=== PATIENT | male | born 1950 | race Caucasian/White ===

== ENCOUNTER → 2018-05-14 | Outpatient (CLI) | payer MEDICARE ==
[2018-05-14 10:09] LABS: HGB 16.3 gm/dL (13.0-17.5); MCH 28.6 pg (25.0-35.0); MCHC 32.7 g/dL (31.0-37.0); MCV 87.6 fL (80.0-100.0); Mean Platelet Volume 7.1; Platelet Count 200 k/uL (150-450); RBC 5.71 m/uL (4.30-5.90); RDW 13.2 % (11.5-15.5); WBC 6.6 k/uL (3.8-10.6)
[2018-05-14 10:18] LABS: INR 0.9 (<1.2); Partial Thromboplastin Time 25.2 sec (22.0-30.0); Prothrombin Time 9.6 sec (9.0-12.0)
== END | disposition home or self-care (01) ==
LOC: LABPAT 09:32
PROVIDERS: ATTEND Orthopaedic Surgery
DX: Z01.812 Encounter for preprocedural laboratory examination (principal)
CPT/HCPCS: 36415; 80051; 82565; 84520; 85027; 85610; 85730; 87070

== ENCOUNTER 2018-05-28 05:33 | Inpatient (IN) | payer MEDICARE ==
[~2018-05-28 05:33] MED LIST: ACETAMINOPHEN TAB 500 MG TAB PO ONE; MELOXICAM 7.5 MG TAB PO ONE; TRANEXAMIC ACID 1,000 MG in SODIUM CHLORIDE 0.9% 100 ML IVPB PRN; TRANEXAMIC ACID 1,000 MG in SODIUM CHLORIDE 0.9% 50 ML IVPB ONE
[2018-05-28] MEDS ORDERED: ceFAZolin 3 GM in SODIUM CHLORIDE 0.9% 100 ML IVPB ONE (06:00)
[2018-05-28] MEDS ORDERED: ROPIVACAINE 246.25 MG, EPINEPHrine 0.5 MG, KETOROLAC 30 MG, cloNIDine HCL/PF 80 MCG, WA... MISCELLANE ONE ×5 (06:10)
[2018-05-28] MEDS ORDERED: fentaNYL (PF) 50 MCG/ML 2 ML AMP IV PRN (06:12)
[2018-05-28] MEDS ORDERED: ONDANSETRON 4 MG/2 ML VIAL IVP ONE (06:12)
[2018-05-28] MEDS ORDERED: DEXAMETHASONE SOD PHOSPHATE 10 MG/ML 1 ML VIAL IV ONE (06:12)
[2018-05-28] MEDS ORDERED: LIDOCAINE 1% 20 ML VIAL (10MG/ML) FOR IV START INTRADERMA PRN (06:12)
[2018-05-28] MEDS ORDERED: MIDAZOLAM (PF) 2 MG/2 ML VIAL IV PRN (06:12)
[2018-05-28] MEDS: LACTATED RINGERS 1,000 ML IV SCH (06:26)
[2018-05-28 06:36] LABS: Glucose,Whole Blood 198 mg/dL (75-99)
[2018-05-28] MEDS ORDERED: hydrOXYzine PAMOATE 25 MG CAP PO PRN (06:56)
[2018-05-28] MEDS ORDERED: ONDANSETRON 4 MG/2 ML VIAL IVP PRN (06:56)
[2018-05-28] MEDS ORDERED: MAGNESIUM HYDROXIDE 2,400 MG/10 ML CUP PO PRN (06:56)
[2018-05-28] MEDS ORDERED: HYDROmorphone 0.5 MG/0.5 ML SYRINGE IVP PRN ×2 (06:56)
[2018-05-28] MEDS ORDERED: HYDROcodone/APAP 5-325MG 1 EACH TAB PO PRN (06:56)
[2018-05-28] MEDS ORDERED: NALOXONE 0.4 MG/ML 1 ML VIAL IV PRN (06:56)
[2018-05-28] MEDS ORDERED: DIAZEPAM 5 MG TAB PO PRN (06:56)
[2018-05-28] MEDS ORDERED: TRANEXAMIC ACID 1,000 MG/10 ML VIAL ONE (07:00)
[2018-05-28] MEDS ORDERED: ePHEDrine SULFATE/0.9% NACL/PF 50 MG/5 ML SYRINGE IV ONE (07:00)
[2018-05-28] MEDS ORDERED: PHENYLEPHRINE-0.9% NACL SYG 1 MG/10 ML SYRINGE ONE (07:00)
[2018-05-28] MEDS ORDERED: SODIUM CHLORIDE 0.9% IRRIG 1,000 ML BTL IRRIGATION ONE (07:00)
[2018-05-28] MEDS ORDERED: SODIUM CHLORIDE 0.9% 100 ML BAG ONE (07:00)
[2018-05-28] MEDS ORDERED: HEPARIN SODIUM,PORCINE 10,000 UNIT/ML 1 ML VIAL ONE (07:00)
[2018-05-28] MEDS ORDERED: fentaNYL (PF) 50 MCG/ML 2 ML AMP ONE (07:00)
[2018-05-28] MEDS ORDERED: MIDAZOLAM 2 MG/2 ML VIAL ONE (07:00)
[2018-05-28] MEDS ORDERED: ceFAZolin 3,000 MG in SODIUM CHLORIDE 0.9% IRRIGATIO 3,000 ML IRRIGATION ONE (07:04)
[2018-05-28] MEDS ORDERED: LACTATED RINGERS 1,000 ML IV ONE (08:06)
[2018-05-28] MEDS ORDERED: MELOXICAM 7.5 MG TAB PO SCH (09:00)
[2018-05-28] MEDS ORDERED: ASPIRIN 325 MG TAB PO SCH (09:00)
--- NOTE | 2018-05-28 09:03 | P.OP ---
Date of Procedure: 05/28/18 Preoperative Diagnosis: Severe osteoarthritis right hip Postoperative Diagnosis: Severe osteoarthritis right hip Procedure(s) Performed: Right total hip arthroplasty with a direct anterior approach Implants: López and nephew Polarstem size 9 standard López [employer] Nephew R3, 3 hole acetabular shell, 60 mm López [employer] Nephew reflection 6.5 mm cancellus screw, 25 mm 2 López [employer] Nephew R3, XLPE 20 acetabular liner López & Nephew Oxinium femoral head 36 m, +8 All components were press-fit. The articulation is Oxinium on polyethylene. Anesthesia: spinal Surgeon: Zia Bae Dopster #1: Roya Ortega Estimated Blood Loss (ml): 600 (300 mL returned with Cell Saver) Pathology: other (Femoral head) Condition: stable Disposition: PACU Indications for Procedure: After failure of conservative treatment we discussed the surgical and nonsurgical treatment options at length. Patient wishes to proceed with a total hip arthroplasty with a direct anterior approach. Complications specific to this procedure were discussed at length, including but not limited to infection, leg length discrepancy, dislocation, and nerve injury. Patient is aware of all these complications and informed consent was obtained Operative Findings: The operative findings are consistent with severe osteoarthritis of the right hip Description of Procedure: Patient was seen and evaluated in the preoperative area, consent was reviewed, and the surgical site was marked with a skin marker. Patient was then brought to the operating room and given prophylactic antibiotics intravenously. 1 g of Tranexamic acid was also given. A spinal anesthetic was administered by the anesthesia department. The patient was then placed on the Roebuck table with the bony prominences well-padded. The hip area was then prepped and draped in usual sterile fashion. A universal timeout was then performed, which confirmed the patient's name, surgical site, ALLERGIES, and procedure being performed. Next the incision site was located at 1 cm distal and 1 cm lateral to the anterior superior iliac spine. The skin and subcutaneous tissues were sharply incised. Incision was carefully dissected down to the fascia overlying the tensor fascia autumn muscle. This fascia was then incised in line with the incision. Next, using blunt finger dissection, the tensor fascia autumn muscle was dissected off its investing fascia. The muscle was then carefully retracted laterally with a cobra retractor over the lateral neck of the femur. Next, the circumflex vessels were identified and cauterized using the AquaMantis device. The anterior hip capsule was then exposed. The capsule was then opened and an inverted T fashion. Cobra retractors were then placed intracapsularly. The proximal femur was then visualized. The femoral neck was then osteotomized appropriate level above the lesser trochanter. Small amount of traction was placed with the Roebuck table. A small wedge of bone was then removed from the remaining femoral head. Next, using a corkscrew femoral head was easily removed from the acetabulum. On gross visual inspection, the femoral head had complete loss of articular cartilage in multiple periarticular osteophytes. Attention was then turned to the acetabulum. the acetabulum was exposed and any remaining labrum was excised. Sequential reaming of the acetabulum was performed using fluoroscopic guidance. When the appropriate size was reached, a trial was then placed. The position and fit of the trial was checked with fluoroscopy. The trial was then removed. Then, using fluoroscopic guidance, the final implant was impacted at 20 of anteversion and 40 of abduction, and fully seated in the acetabulum. 2 screws were then placed in the acetabulum. Again fluoroscopy was used to check position of the screws. Next, the liner was then impacted, with a 20 elevated liner located in the anterior superior quadrant. Component locking was confirmed. Attention was then directed to the femur. With the aid of the Roebuck table, the femur was externally rotated to approximately 130, extended, and abducted under the opposite leg. A side hook was then placed under the proximal femur, and the side hook elevator was used to elevate the proximal femur. Retractors were then placed. A capsular release was performed, as well as a release of the conjoined tendon, which afforded excellent visualization of the proximal femur. Next, a box osteotome was used to lateralize the proximal femur. A grain handler was then used to locate the femoral canal. Sequential broaching was then performed with appropriate size which afforded excellent fixation in the proximal femur. A trial was then placed with appropriate head and neck, and the hip was gently reduced with the aid of the Roebuck table. Fluoroscopy was then used to check position of the components, as well as to ensure equal leg lengths. The hip was then gently dislocated and the trials were then removed. Final implants were then impacted and the hip was again reduced. Final fluoroscopic x-rays confirmed that the components were in anatomic position, as well as equal leg lengths. The hip was also taken through range of motion, and found to be stable. The hip was then copiously irrigated with antibiotic solution with pulsatile lavage. The hip was then irrigated with Irrisept solution. The soft tissues were then injected with a ropivacaine solution, which consisted of 246.25 mg of ropivacaine, 0.5 mg of epinephrine, 30 mg of Toradol, 80 g of clonidine, and 48.45 mL of sterile water, for a total of 100 mL of fluid injected. A second dose of 1 g of Tranexamic acid was also given. the fascia was then closed with 2-0 strata fix suture. The subcutaneous tissue was closed with 3-0 Vicryl. The subcuticular tissue was closed with 3-0 strata fix suture. The skin was then closed with Dermabond glue and a sterile silver dressing. The patient was then transferred to the recovery room in stable condition. The stores assistant MAKAYLA Abel was required due to the complexity of surgery, and the need for skilled surgical garment assembler for positioning, draping, exposure, retraction, and closure of the wound.
--- NOTE | 2018-05-28 09:36 | XR ---
EXAMINATION TYPE: XR Hip Limited RT DATE OF EXAM: 05/28/2018 COMPARISON: NONE HISTORY: 67-year-old male status post hip surgery, assess cervical alignment TECHNIQUE: Single AP portable view FINDINGS: Slightly underpenetrated exam. Alignment grossly anatomic demonstration of right hip total arthroplas ty. Both the acetabular cup and femoral stem components of the prosthesis appear well seated. No liz prosthetic fracture seen. Some minimal soft tissue air related to recent operation. IMPRESSION: Uncomplicated postoperative appearance right total hip arthroplasty.
[2018-05-28 10:48] VITALS: BMI 35.2
[2018-05-28] MEDS: HYDROmorphone 0.5 MG/0.5 ML SYRINGE IVP PRN ×2 (10:53→15:28)
[2018-05-28] MEDS: SODIUM CHLORIDE 0.9% 1,000 ML IV SCH ×2 (10:59→22:44)
--- NOTE | 2018-05-28 11:19 | XR ---
Limited right hip HISTORY: Status post right hip arthroplasty 2 intraoperative C-arm images document the procedure.
--- NOTE | 2018-05-28 11:20 | FL ---
Fluoroscopy HISTORY: Hip replacement 30 seconds fluoroscopy time supplied to the referring clinician. 2 intraoperative C-arm images docum ent the procedure. See dictated report from orthopedic surgery.
[2018-05-28 11:57] LABS: Glucose,Whole Blood 275 mg/dL (75-99)
[2018-05-28] MEDS: INSULIN ASPART (NovoLOG) 100 UNIT/ML VIAL SQ SCH ×4 (13:23→20:20)
[2018-05-28] MEDS: HYDROcodone/APAP 5-325MG 1 EACH TAB PO PRN ×2 (13:23→20:21)
--- NOTE | 2018-05-28 15:02 | P.CONS ---
History of Present Illness - Reason for Consult Consult date: 05/28/18 postoperative management of hypertension and diabetes Requesting physician: Zia Bae - Chief Complaint elective right DUARTE - History of Present Illness 67-year-old male with history of hypertension diabetes and CAD status post stents Patient presented electively for right total hip arthroplasty due to advanced degenerative joint disease failing outpatient therapy with medical conservative management. Patient reported a lot of pain on daily basis refractory to pain medications. Patient is a . Patient is currently seen postoperative day 0 tolerated procedure well denies any nausea vomiting chest pain trouble breathing or any active bleeding. Patient pain level at this time is well- tolerated. He tolerated by mouth intake did not pass urine or bowel movement yet. I reviewed his medications with the patient. We'll continue his home medications we'll reassess labs and blood work in the morning Review of Systems Pertinent positives as noted in HPI. All other systems were reviewed and are negative Past Medical History Past Medical History: Coronary Artery Disease (CAD), Diabetes Mellitus, GERD/ Reflux, Hyperlipidemia, Hypertension, Osteoarthritis (OA) Additional Past Medical History / Comment(s): hx ulcers, History of Any Multi-Drug Resistant Organisms: None Reported Past Surgical History: Back Surgery, Heart Catheterization With Stent, Orthopedic Surgery, Tonsillectomy Additional Past Surgical History / Comment(s): HEART STENTS X 4, surgery on ellyn hands, Past Anesthesia/Blood Transfusion Reactions: No Reported Reaction Additional Past Anesthesia/Blood Transfusion Reaction / Comm: . Date of Last Stent Placement:: approx 10 yrs ago Past Psychological History: No Psychological Hx Reported Smoking Status: Former smoker Past Alcohol Use History: Rare Additional Past Alcohol Use History / Comment(s): QUIT SMOKING 2005, SMOKED 3PPD FOR 45YRS Past Drug Use History: None Reported - Past Family History Mother Family Medical History: CVA/TIA Father Family Medical History: Myocardial Infarction (NM) Brother(s) Family Medical History: Cancer Medications and Allergies Home Medications Medication Instructions Recorded Confirmed Type Aspirin 325 mg PO DAILY 03/27/14 05/28/18 History DULoxetine HCL 60 mg PO QAM 03/27/14 05/28/18 History Insulin Detemir [Levemir] 60 unit SQ BID 03/27/14 05/28/18 History Metoprolol Tartrate [Lopressor] 25 mg PO BID 03/27/14 05/28/18 History Tamsulosin [Flomax] 0.4 mg PO BID 03/27/14 05/28/18 History Clopidogrel [Plavix] 75 mg PO DAILY #90 tab 03/31/14 05/28/18 Rx Omeprazole 20 mg PO BID 11/02/15 05/28/18 History Cholecalciferol [Vitamin D3] 2,000 unit PO DAILY 05/21/18 05/28/18 History Fluticasone/Vilanterol [Breo 1 inhalation PO RT-DAILY 05/21/18 05/28/18 History Ellipta 100-25 Mcg Inhaler] Ibuprofen 800 mg PO TID PRN 05/21/18 05/28/18 History Insulin Aspart [NovoLOG Flexpen] 30 units SQ TID 05/21/18 05/28/18 History Ipratropium/Albuterol Sulfate 1 puff INHALATION RT-BID 05/21/18 05/28/18 History [Combivent Respimat Inhaler] Liraglutide [Victoza 3-Rikki] 0.6 mg SQ DAILY 05/21/18 05/28/18 History Mupirocin 2% Oint [Bactroban 2% 1 applic TOPICAL TID PRN 05/21/18 05/28/18 History Oint] Pravastatin Sodium [Pravachol] 80 mg PO HS 05/21/18 05/28/18 History Allergies Allergy/AdvReac Type Severity Reaction Status Date / Time No Known Allergies Allergy Verified 05/28/18 09:37 Physical Exam Vitals: Vital Signs Temp Pulse Pulse Resp BP Pulse Ox 05/28/18 09:46 85 16 145/93 97 05/28/18 09:30 80 16 135/61 97 05/28/18 09:15 83 16 144/67 99 05/28/18 09:05 97.7 F 86 16 153/97 99 05/28/18 06:31 97.1 F L 82 16 163/38 96 Intake and Output 05/27/18 05/28/18 05/28/18 22:59 06:59 14:59 Intake Total 200 1401 Output Total 600 Balance 200 801 Intake: IV 200 1401 Output: Estimated Blood Loss 600 Constitutional: No acute distress, conversant, pleasant Eyes: Anicteric sclerae, moist conjunctiva, no lid-lag Pupils equal round reactive to light ENMT: NC/AT Oropharynx clear, no erythema, or exudates Neck: Supple, FROM, no masses, or JVD No carotid bruits No thyromegaly Lungs: Clear to auscultation Clear to percussion Normal respiratory effort, no accessory muscle use Cardiovascular: Heart regular in rate and rhythm, No murmurs, gallops, or rubs No peripheral edema Abdominal: Soft Nontender, no guarding, rebound or rigidity Abdomen moving with respiration Normoactive bowel sounds No hepatomegaly, No splenomegaly No palpable mass No abdominal wall hernia noted Skin: Normal temperature, tone, texture, turgor No induration No subcutaneous nodules No rash, lesions No ulcers Extremities: Surgical dressing over the right anterior hip, clean dry and intact, no bruising or ecchymosis visible No digital cyanosis No clubbing Pedal pulses intact and symmetrical Radial pulses intact and symmetrical No calf tenderness Psychiatric: Alert and oriented to person, place and time Appropriate affect fair judgment Neuro Muscles Strength 5/5 in all 4 extremities except for limited exam over the right hip due to recent surgery Sensation to light touch grossly present throughout Cranial nerves II-XII grossly intact No focal sensory deficits Lymphatics: no palpable cervical or supraclavicular , or inguinal lymph nodes Results Labs: Abnormal Lab Results - Last 24 Hours (Table) 05/28/18 05/28/18 Range/Units 06:34 11:41 POC Glucose (mg/dL) 198 H 275 H (75-99) mg/dL Assessment and Plan Assessment: 67-year-old male with history of diabetes and hypertension. Admitted electively for right hip total arthroplasty patient is seen postoperative day 1 for medical management of his diabetes and hypertension. Currently doing well tolerated procedure well no active complaints or immediate postoperative complications Plan: Degenerative disease of the right hip, status post total hip arthroplasty postoperative day 0 Pain and DVT prophylaxis per orthopedic Chronic conditions currently stable Diabetes mellitus continue with insulin GERD continue with PPI COPD currently compensated History of CAD status post stents Hypertension currently controlled Hyperlipidemia CK D Follow-up morning labs medications reviewed Patient is full code Thank you for allowing us to participate in the care of this patient. Do not hesitate to contact us with questions. Someone can be reached from the [facility] hospitalist group at all hours of the day at [phone].
[2018-05-28] MEDS: METOPROLOL TARTRATE 25 MG TAB PO SCH ×2 (15:30→20:20)
[2018-05-28] MEDS ORDERED: IPRATROPIUM-ALBUTEROL 3 ML NEB INHALATION PRN (15:44)
[2018-05-28] MEDS: ceFAZolin 3 GM in SODIUM CHLORIDE 0.9% 100 ML IVPB SCH (16:33)
[2018-05-28 17:21] LABS: Glucose,Whole Blood 307 mg/dL (75-99)
[2018-05-28] MEDS: SYMBICORT 80-4.5 MCG INHALER INHALATION SCH (20:09)
[2018-05-28] MEDS: IPRATROPIUM-ALBUTEROL 3 ML NEB INHALATION SCH (20:09)
[2018-05-28 20:16] LABS: Glucose,Whole Blood 253 mg/dL (75-99)
[2018-05-28] MEDS: TAMSULOSIN 0.4 MG CAP.ER.24H PO SCH (20:20)
[2018-05-28] MEDS: INSULIN DETEMIR (LEVEMIR) 100 UNIT/ML SYR SQ SCH (20:20)
[2018-05-28] MEDS ORDERED: PRAVASTATIN SODIUM 80 MG TAB PO SCH (21:00)
[2018-05-28] MEDS ORDERED: SENNOSIDES-DOCUSATE SODIUM 1 EACH TAB PO SCH (21:00)
[2018-05-29] MEDS: ceFAZolin 3 GM in SODIUM CHLORIDE 0.9% 100 ML IVPB SCH (00:20)
[2018-05-29] MEDS: HYDROmorphone 0.5 MG/0.5 ML SYRINGE IVP PRN (00:26)
[2018-05-29] MEDS: HYDROcodone/APAP 5-325MG 1 EACH TAB PO PRN ×2 (03:14→08:54)
[2018-05-29] MEDS: LACTATED RINGERS 1,000 ML IV SCH (06:04)
[2018-05-29 06:57] LABS: Anion Gap 5 mmol/L; Blood Urea Nitrogen 23 mg/dL (9-20); Calcium 8.7 mg/dL (8.4-10.2); Carbon Dioxide 28 mmol/L (22-30); Chloride 103 mmol/L (98-107); Glucose 134 mg/dL (74-99); Potassium 4.2 mmol/L (3.5-5.1); Sodium 136 mmol/L (137-145)
[2018-05-29 07:08] LABS: Glucose,Whole Blood 128 mg/dL (75-99)
[2018-05-29 07:15] LABS: Basophils % (A) 0 %; Eosinophils # (A) 0.1 k/uL (0-0.7); Eosinophils % (A) 1 %; HCT 35.4 % (39.0-53.0); Lymphocytes # (A) 1.6 k/uL (1.0-4.8); Lymphocytes % (A) 15 %; MCH 28.7 pg (25.0-35.0); MCHC 32.6 g/dL (31.0-37.0); Mean Platelet Volume 7.4; Monocytes # (A) 0.6 k/uL (0-1.0); Monocytes % (A) 6 %; Neutrophils # (A) 7.7 k/uL (1.3-7.7); Neutrophils % (A) 77 %; Platelet Count 197 k/uL (150-450); RBC 4.02 m/uL (4.30-5.90); RDW 13.6 % (11.5-15.5); WBC 10.1 k/uL (3.8-10.6)
[2018-05-29 07:16] LABS: HGB 11.5 gm/dL (13.0-17.5)
[2018-05-29] MEDS ORDERED: PANTOPRAZOLE 40 MG TABLET PO SCH (07:30)
[2018-05-29 07:36] VITALS: BP 156/80; RESP 18; TEMP 98
[2018-05-29] MEDS: INSULIN ASPART (NovoLOG) 100 UNIT/ML VIAL SQ SCH ×2 (07:50→07:56)
[2018-05-29] MEDS: SYMBICORT 80-4.5 MCG INHALER INHALATION SCH (08:30)
[2018-05-29] MEDS: IPRATROPIUM-ALBUTEROL 3 ML NEB INHALATION SCH (08:30)
[2018-05-29 08:43] VITALS: PULSE 110
--- NOTE | 2018-05-29 08:53 | P.DS ---
Providers Date of admission: 05/28/18 05:33 Expected date of discharge: 05/29/18 Attending physician: Zia Bae Consults: 05/28/18 06:56 Consult Physician Routine Consulting Provider: Beau Burris Consult Reason/Comments: medical management and anticoagulation Do you want consulting provider notified?: Yes 05/28/18 09:46 Consult Physician Routine Consulting Provider: Teresa Joyce Consult Reason/Comments: medical management and anticoagulation Do you want consulting provider notified?: Already Contacted Primary care physician: Beau Burris - Discharge Diagnosis(es) (1) Primary osteoarthritis of right hip Current Visit: Yes Status: Acute (2) S/P total hip arthroplasty Current Visit: Yes Status: Acute Hospital Course: This is a 67-year-old male with known history of degenerative arthritis of the right hip. The patient presents for evaluation. After discussion and consideration patient elects to proceed with total hip arthroplasty. The patient is seen preoperatively by Dr. Bae and medically cleared for surgery by their primary care physician. Patient is admitted to [facility] on 05/28/2018 for total hip arthroplasty. The procedures performed without complication or sequelae. The patient is doing well postoperatively. Labs and vital signs are stable on day of discharge. On day of discharge patient's hip incision is healing well. There is minimal erythema. There is no drainage noted at this time. There is minimal soft tissue swelling to the hip and thigh. Patient has full foot and ankle motion without difficulty or pain. Neurovascular status to the right lower extremity is intact. Patient is discharged home in good condition. Please see med rec for accurate list of home medications. Plan - Discharge Summary Discharge Rx Participant: No New Discharge Prescriptions: New Aspirin 325 mg PO BID #60 tab HYDROcodone/APAP 5-325MG [Ona 5-325] 1 - 2 tab PO Q6HR PRN #56 tab PRN Reason: Pain Sennosides [Senokot] 1 tab PO BID #60 tablet No Action Tamsulosin [Flomax] 0.4 mg PO BID Insulin Detemir [Levemir] 60 unit SQ BID DULoxetine HCL 60 mg PO QAM Metoprolol Tartrate [Lopressor] 25 mg PO BID Aspirin 325 mg PO DAILY Clopidogrel [Plavix] 75 mg PO DAILY #90 tab Omeprazole 20 mg PO BID Fluticasone/Vilanterol [Breo Ellipta 100-25 Mcg Inhaler] 1 inhalation PO RT- DAILY Ibuprofen 800 mg PO TID PRN PRN Reason: pain Insulin Aspart [NovoLOG Flexpen] 30 units SQ TID Ipratropium/Albuterol Sulfate [Combivent Respimat Inhaler] 1 puff INHALATION RT-BID Liraglutide [Victoza 3-Rikki] 0.6 mg SQ DAILY Mupirocin 2% Oint [Bactroban 2% Oint] 1 applic TOPICAL TID PRN PRN Reason: hand irritation Pravastatin Sodium [Pravachol] 80 mg PO HS Cholecalciferol [Vitamin D3] 2,000 unit PO DAILY Discharge Medication List Aspirin 325 mg PO DAILY 03/27/14 [History] DULoxetine HCL 60 mg PO QAM 03/27/14 [History] Insulin Detemir [Levemir] 60 unit SQ BID 03/27/14 [History] Metoprolol Tartrate [Lopressor] 25 mg PO BID 03/27/14 [History] Tamsulosin [Flomax] 0.4 mg PO BID 03/27/14 [History] Clopidogrel [Plavix] 75 mg PO DAILY #90 tab 03/31/14 [Rx] Omeprazole 20 mg PO BID 11/02/15 [History] Cholecalciferol [Vitamin D3] 2,000 unit PO DAILY 05/21/18 [History] Fluticasone/Vilanterol [Breo Ellipta 100-25 Mcg Inhaler] 1 inhalation PO RT- DAILY 05/21/18 [History] Ibuprofen 800 mg PO TID PRN 05/21/18 [History] Insulin Aspart [NovoLOG Flexpen] 30 units SQ TID 05/21/18 [History] Ipratropium/Albuterol Sulfate [Combivent Respimat Inhaler] 1 puff INHALATION RT- BID 05/21/18 [History] Liraglutide [Victoza 3-Rikki] 0.6 mg SQ DAILY 05/21/18 [History] Mupirocin 2% Oint [Bactroban 2% Oint] 1 applic TOPICAL TID PRN 05/21/18 [History ] Pravastatin Sodium [Pravachol] 80 mg PO HS 05/21/18 [History] Aspirin 325 mg PO BID #60 tab 05/29/18 [Rx] HYDROcodone/APAP 5-325MG [Ona 5-325] 1 - 2 tab PO Q6HR PRN #56 tab 05/29/18 [ Rx] Sennosides [Senokot] 1 tab PO BID #60 tablet 05/29/18 [Rx] Follow up Appointment(s)/Referral(s): Zia Bae DO [Doctor of Osteopathic Medicine] - 2 Weeks Activity/Diet/Wound Care/Special Instructions: Weightbearing as tolerated with walker. Leave dressing intact. Dressing may be removed by home care nurse or by patient in 10 days. May shower with dressing on. Please follow-up with [facility] in 2 weeks and call with any questions or concerns, . Discharge Disposition: HOME WITH HOME HEALTH SERVICES
[2018-05-29] MEDS: TAMSULOSIN 0.4 MG CAP.ER.24H PO SCH (08:54)
[2018-05-29] MEDS: INSULIN DETEMIR (LEVEMIR) 100 UNIT/ML SYR SQ SCH (08:54)
[2018-05-29] MEDS: METOPROLOL TARTRATE 25 MG TAB PO SCH (08:54)
[2018-05-29] MEDS ORDERED: DULoxetine HCL 60 MG CAPSULE.DR PO SCH (09:00)
[2018-05-29] MEDS ORDERED: ASPIRIN 81 MG PO SCH (09:00)
[2018-05-29] MEDS ORDERED: ASPIRIN 325 MG TAB PO SCH (09:00)
[2018-05-29] MEDS ORDERED: CLOPIDOGREL 75 MG TAB PO SCH (09:00)
--- NOTE | 2018-05-29 10:05 | P.PN ---
Subjective Progress Note Date: 05/29/18 Principal diagnosis: Follow-up for medical management postoperatively managing blood pressure and diabetes mellitus Patient seen and examined doing well no new complaints denies any fevers or chills cough or chest pain or trouble breathing Patient participated in physical therapy is currently walking using a walker. Objective - Vital Signs Vital signs: Vital Signs Temp 98.0 F 05/29/18 07:34 Pulse 110 H 05/29/18 08:42 Resp 18 05/29/18 07:34 BP 156/80 05/29/18 07:34 Pulse Ox 98 05/29/18 07:34 Intake & Output 05/28/18 05/29/18 05/29/18 18:59 06:59 18:59 Intake Total 1641 1220 Output Total 600 Balance 1041 1220 Intake: IV 1401 Intake, IV Titration 620 Amount Sodium Chloride 0.9% 1, 520 000 ml @ 65 mls/hr IV . [id number] [facility] Rx#:[id number] ceFAZolin 3 gm In Sodium 100 Chloride 0.9% 100 ml @ 200 mls/hr IVPB ONCE ONE Rx#:[id number] Oral 240 600 Output: Estimated Blood Loss 600 Other: Voiding Method Toilet Toilet Toilet # Voids 1 3 - Exam Constitutional: vital signs stable, Not in acute distress, pleasant, conversant Lungs: Clear to auscultation bilaterally, clear to percussion, normal respiratory effort no use of accessory muscles Cardiovascular: Regular rate and rhythm, no murmurs, no gallops, no rubs, no peripheral edema Gastrointestinal: Soft, no tenderness to palpation, no palpable hepatosplenomegally, bowel sounds positive, no abdominal wall hernias Extremities: No digital cyanosis or clubbing, peripheral pulses palpable and equal over bilateral radial arteries and dorsalis pedis artery, no calf muscle tenderness, surgical site dressing looks clean and intact and dry Psych: Alert, oriented to place, person and time, appropriate affect, intact judgment - Labs CBC & Chem 7: 05/29/18 06:19 05/29/18 06:19 Labs: Abnormal Lab Results - Last 24 Hours (Table) 05/28/18 05/28/18 05/28/18 Range/Units 11:41 17:05 20:03 RBC (4.30-5.90) m/uL Hgb (13.0-17.5) gm/dL Hct (39.0-53.0) % Sodium (137-145) mmol/L BUN (9-20) mg/dL Glucose (74-99) mg/dL POC Glucose (mg/dL) 275 H 307 H 253 H (75-99) mg/dL 05/29/18 05/29/18 05/29/18 Range/Units 06:19 06:19 06:57 RBC 4.02 L (4.30-5.90) m/uL Hgb 11.5 L D (13.0-17.5) gm/dL Hct 35.4 L (39.0-53.0) % Sodium 136 L (137-145) mmol/L BUN 23 H (9-20) mg/dL Glucose 134 H (74-99) mg/dL POC Glucose (mg/dL) 128 H (75-99) mg/dL Assessment and Plan Assessment: 67-year-old male with history of diabetes and hypertension. Admitted electively for right hip total arthroplasty patient is seen postoperative for medical management of his diabetes and hypertension. Currently doing well tolerated procedure well no active complaints or immediate postoperative complications Plan: Degenerative disease of the right hip, status post total hip arthroplasty postoperative day 1 Pain and DVT prophylaxis per orthopedic Acute blood loss anemia postoperatively as anticipated asymptomatic Outpatient follow-up Chronic conditions currently stable Diabetes mellitus continue with insulin GERD continue with PPI COPD currently compensated History of CAD status post stents Hypertension currently controlled Hyperlipidemia CK D Patient is full code Overall blood pressure is well-controlled Patient is stable from internal medicine standpoint for discharge Thank you for allowing us the opportunity to participate in the care of this patient
== END 2018-05-29 11:17 | disposition home health service (06) | DRG 470 ==
LOC: 2ORMAIN 05:33 → 4SSUR 08:57
PROVIDERS: ADMIT Orthopaedic Surgery; ATTEND Orthopaedic Surgery
PROC: 30233N0 Transfusion of Autologous Red Blood Cells into Peripheral Vein, Percutaneous Approach (ICD-10-PCS; 2018-05-28)
PROC: 0SR906A Replacement of Right Hip Joint with Oxidized Zirconium on Polyethylene Synthetic Substitute, Uncemented, Open Approach (ICD-10-PCS; principal; 2018-05-28 07:00)
DX: M16.11 Unilateral primary osteoarthritis, right hip (principal); D62 Acute posthemorrhagic anemia; E11.21 Type 2 diabetes mellitus with diabetic nephropathy; J44.9 Chronic obstructive pulmonary disease, unspecified; E66.01 Morbid (severe) obesity due to excess calories; Z68.35 Body mass index [BMI] 35.0-35.9, adult; I10 Essential (primary) hypertension; I25.10 Atherosclerotic heart disease of native coronary artery without angina pectoris; K21.9 Gastro-esophageal reflux disease without esophagitis; E78.5 Hyperlipidemia, unspecified; H91.90 Unspecified hearing loss, unspecified ear; M48.00 Spinal stenosis, site unspecified; Z79.82 Long term (current) use of aspirin; Z79.02 Long term (current) use of antithrombotics/antiplatelets; Z79.4 Long term (current) use of insulin; Z79.51 Long term (current) use of inhaled steroids; Z79.899 Other long term (current) drug therapy; Z87.11 Personal history of peptic ulcer disease; Z87.891 Personal history of nicotine dependence; Z82.49 Family history of ischemic heart disease and other diseases of the circulatory system; Z95.5 Presence of coronary angioplasty implant and graft; Z82.3 Family history of stroke; Z80.9 Family history of malignant neoplasm, unspecified
CPT/HCPCS: 36415; 73501; 80048; 85025; 86850; 86891; 86900; 86901; 88300; 94640

== ENCOUNTER → 2018-06-07 | Outpatient (CLI) | payer MEDICARE ==
--- NOTE | 2018-06-07 14:37 | US ---
EXAMINATION TYPE: US venous doppler duplex LE RT DATE OF EXAM: 06/07/2018 2:21 PM COMPARISON: NONE CLINICAL HISTORY: M79.604 Pain in right leg. Pain and edema right lower leg. Right hip replacement SIDE PERFORMED: right TECHNIQUE: The lower extremity deep venous system is examined utilizing real time linear array sonog mildred with graded compression, doppler sonography and color-flow sonography. VESSELS IMAGED: External Iliac Vein (EIV) Common Femoral Vein Deep Femoral Vein Greater Saphenous Vein * Femoral Vein Popliteal Vein Small Saphenous Vein * Proximal Calf Veins (* superficial vessels) Right Leg: No evidence of DVT IMPRESSION: 1. Right lower extremity ultrasound negative for deep venous thrombosis. 2. Some superficial subcutaneous edema in the right lower extremity is identified.
== END | disposition home or self-care (01) ==
LOC: RADUSWWP 13:58
PROVIDERS: ATTEND Orthopaedic Surgery
DX: R60.0 Localized edema (principal); M25.551 Pain in right hip; M79.604 Pain in right leg; I10 Essential (primary) hypertension; E13.9 Other specified diabetes mellitus without complications; I80.9 Phlebitis and thrombophlebitis of unspecified site; Z87.891 Personal history of nicotine dependence

== ENCOUNTER 2018-06-09 07:33 | Emergency (ER) | payer MEDICARE ==
[2018-06-09 07:47] VITALS: RESP 18
[2018-06-09] MEDS ORDERED: LIDOCAINE 1% INJ 10MG/ML (20 ML MDV) SQ ONE (07:51)
[2018-06-09] MEDS ORDERED: DIPH,PERTUS(ACELL)TETVAC-LF 0.5 ML VIAL IM ONE (07:51)
--- NOTE | 2018-06-09 07:53 | ED ---
General Adult HPI - General Chief complaint: Fall Stated complaint: Fall,lacertation Time Seen by Provider: 06/09/18 07:37 Source: patient, RN notes reviewed Mode of arrival: EMS Limitations: no limitations - History of Present Illness Initial comments: 67-year-old male presents to the emergency department for a chief complaint of fall. Patient recently released from the hospital for hip replacement 2 weeks ago. Patient states he got up and was walking to the bathroom when he tripped and fell and hit his head on the nightstand. Patient did not lose consciousness. Patient is on Plavix. Patient denies MCKOY or neck pain. Patient has no other complaints at this time including shortness of breath, chest pain, abdominal pain, nausea or vomiting, headache, or visual changes. - Related Data Home Medications Medication Instructions Recorded Confirmed Aspirin 325 mg PO DAILY 03/27/14 05/28/18 DULoxetine HCL 60 mg PO QAM 03/27/14 05/28/18 Insulin Detemir (Levemir) [Levemir] 60 unit SQ BID 03/27/14 05/28/18 Metoprolol Tartrate [Lopressor] 25 mg PO BID 03/27/14 05/28/18 Tamsulosin [Flomax] 0.4 mg PO BID 03/27/14 05/28/18 Omeprazole 20 mg PO BID 11/02/15 05/28/18 Cholecalciferol [Vitamin D3] 2,000 unit PO DAILY 05/21/18 05/28/18 Fluticasone/Vilanterol [Breo 1 inhalation PO RT-DAILY 05/21/18 05/28/18 Ellipta 100-25 Mcg Inhaler] Ibuprofen 800 mg PO TID PRN 05/21/18 05/28/18 Insulin Aspart [NovoLOG Flexpen] 30 units SQ TID 05/21/18 05/28/18 Ipratropium/Albuterol Sulfate 1 puff INHALATION RT-BID 05/21/18 05/28/18 [Combivent Respimat Inhaler] Liraglutide [Victoza 3-Rikki] 0.6 mg SQ DAILY 05/21/18 05/28/18 Mupirocin 2% Oint [Bactroban 2% 1 applic TOPICAL TID PRN 05/21/18 05/28/18 Oint] Pravastatin Sodium [Pravachol] 80 mg PO HS 05/21/18 05/28/18 Previous Rx's Medication Instructions Recorded Clopidogrel [Plavix] 75 mg PO DAILY #90 tab 03/31/14 Aspirin 325 mg PO BID #60 tab 05/29/18 HYDROcodone/APAP 5-325MG [[place] 1 - 2 tab PO Q6HR PRN #56 tab 05/29/18 5-325] Sennosides [Senokot] 1 tab PO BID #60 tablet 05/29/18 Allergies Allergy/AdvReac Type Severity Reaction Status Date / Time No Known Allergies Allergy Verified 06/09/18 07:47 Review of Systems ROS Statement: Those systems with pertinent positive or pertinent negative responses have been documented in the HPI. ROS Other: All systems not noted in ROS Statement are negative. Past Medical History Past Medical History: Diabetes Mellitus, GERD/Reflux, Hearing Disorder / Deafness, Hyperlipidemia, Hypertension Additional Past Medical History / Comment(s): hx ulcers, History of Any Multi-Drug Resistant Organisms: None Reported Past Surgical History: Back Surgery, Heart Catheterization With Stent Additional Past Surgical History / Comment(s): HEART STENTS X 5 Past Anesthesia/Blood Transfusion Reactions: No Reported Reaction Additional Past Anesthesia/Blood Transfusion Reaction / Comment(s): NO HX BLOOD TRANSFUSION Date of Last Stent Placement:: approx 10 yrs ago Past Psychological History: No Psychological Hx Reported Past Alcohol Use History: None Reported - Past Family History Mother Family Medical History: CVA/TIA Father Family Medical History: Myocardial Infarction ([place]) Brother(s) Family Medical History: Cancer General Exam Limitations: no limitations General appearance: alert, in no apparent distress Head exam: Present: normocephalic. Absent: atraumatic (Patient has contusion noted above left eye with 2 cm abrasion noted, this was cleaned thoroughly with saline) Eye exam: Present: normal appearance, PERRL, EOMI. Absent: scleral icterus, conjunctival injection, periorbital swelling ENT exam: Present: normal exam, mucous membranes moist Neck exam: Present: normal inspection, full ROM. Absent: tenderness, meningismus, lymphadenopathy Respiratory exam: Present: normal lung sounds bilaterally. Absent: respiratory distress, wheezes, rales, rhonchi, stridor Cardiovascular Exam: Present: regular rate, normal rhythm, normal heart sounds. Absent: systolic murmur, diastolic murmur, rubs, gallop, clicks Course Vital Signs 06/09/18 07:43 Temperature 98.7 F Pulse Rate 110 H Respiratory 18 Rate Blood Pressure 152/72 O2 Sat by Pulse 95 Oximetry Medical Decision Making - Medical Decision Making 67-year-old male presents to the emergency department for a chief complaint of head injury. Patient had a trip and fall at home. Patient is on Plavix. Patient does have soft tissue swelling noted over the left orbit. No erythema of the eye or pain in the eye. Patient has abrasion noted to this area, does not require suturing. Tetanus given. CT shows soft tissue swelling without fracture evident in the orbit. CT C-spine shows no acute fractures evident. CT brain shows no acute intracranial process. Patient is well appearing at this time. is at bedside. Patient requests to go home now. Patient will follow up with primary care and return if he has any worsening symptoms. Disposition Clinical Impression: Head injury, Abrasion Disposition: HOME SELF-CARE Condition: Good Instructions (If sedation given, give patient instructions): Head Injury (ED), Abrasion (ED) Additional Instructions: Please follow up with primary care in 1-2 days. Keep wound clean. Return here to the emergency department if you have any worsening symptoms. Is patient prescribed a controlled substance at d/c from ED?: No Referrals: Beau Burris MD [Primary Care Provider] - 1-2 days Time of Disposition: 09:06
--- NOTE | 2018-06-09 08:34 | CT ---
EXAMINATION TYPE: CT brain chellyine wo con DATE OF EXAM: 06/09/2018 COMPARISON: None HISTORY: Fell out of bed, struck Lt orbit on nightstand CT DLP: 1436.1 (brain, cervical, orbit) mGycm, Automated exposure control for dose reduction was used . CONTRAST: Patient injected with 0 mL of Isovue 300. CT of the brain is performed utilizing 3 mm thick sections through the posterior fossa and 3 mm thick sections through the remaining calvarium. Study is performed within 24 hours of arrival to the hospital. No abnormal hyperdensity is present to suggest an acute intracranial hemorrhage. No mass lesion is evident. No acute infarcts are evident. Some mild periventricular white matter hypodensity is present, likely on the basis of chronic white matter ischemic changes. Ventricles and sulci are appropriate for the patient age. Because thickening is within the maxillary sinuses. Mucosal thickening is within the ethmoid air cell s within the right frontal sinus. Mastoid air cells are clear. IMPRESSIONS: 1. Mild chronic white matter changes. 2. No acute intracranial process. 3. Mild mucosal thickening through paranasal sinuses. CT cervical spine. COMPARISON: None CT of the cervical spine is performed in the axial plane at 2 mm thick sections. Reconstructed image s in the coronal, and sagittal plane are reviewed on the computer. No acute fractures are evident. Vertebral body alignment is straightened. There may be some minimal grade 1 spondylolisthesis of C2 a nteriorly on C3. Anterior vertebral body spurring is present C2, C4, C5, C6 and C7. There is loss of disc height C6-7 Vertebral body heights are preserved. Spondylosis is present to the lower cervical spine. Uncovertebral joint hypertrophy at C6-7 has sever e right and moderate left foraminal stenosis. Some mild foraminal narrowing C5-6 is present. IMPRESSIONS: 1. No acute fractures evident. 2. Degenerative disc changes lower cervical spine with uncovertebral joint hypertrophy contributing t o foraminal stenosis C5-6 C6-7.
--- NOTE | 2018-06-09 08:35 | CT ---
EXAMINATION TYPE: CT orbits wo con DATE OF EXAM: 06/09/2018 COMPARISON: HISTORY: Fell out of bed, struck Lt orbit on nightstand CT DLP: 1436.1 (brain, cervical and orbit) mGycm Automated exposure control for dose reduction was used. FINDINGS: Mucosal thickening is within paranasal sinuses. This includes the maxillary ethmoid and frontal sinus es. Soft tissue swelling is over the left orbit. No underlying fracture is evident. The globes are symmetrical. Intraconal and extraconal fat is normal. Greater wings of sphenoid is int act. Orbital floor and medial orbital wall appears intact. IMPRESSION: SOFT TISSUE SWELLING OVER THE LEFT ORBIT. NO UNDERLYING FRACTURE IS EVIDENT.
[2018-06-09 09:43] VITALS: BP 154/74; PULSE 95; TEMP 98.2
== END 2018-06-09 09:29 | disposition home or self-care (01) ==
LOC: EC 07:33
DX: S00.83XA Contusion of other part of head, initial encounter (principal); E78.5 Hyperlipidemia, unspecified; I10 Essential (primary) hypertension; K21.9 Gastro-esophageal reflux disease without esophagitis; E11.9 Type 2 diabetes mellitus without complications; H91.90 Unspecified hearing loss, unspecified ear; Z79.4 Long term (current) use of insulin; Z79.02 Long term (current) use of antithrombotics/antiplatelets; Z79.51 Long term (current) use of inhaled steroids; Z79.82 Long term (current) use of aspirin; Z79.899 Other long term (current) drug therapy; Z96.649 Presence of unspecified artificial hip joint; Z95.5 Presence of coronary angioplasty implant and graft; Z23 Encounter for immunization; Z53.20 Procedure and treatment not carried out because of patient's decision for unspecified reasons; W01.190A Fall on same level from slipping, tripping and stumbling with subsequent striking against furniture, initial encounter; Y93.01 Activity, walking, marching and hiking
CPT/HCPCS: 70450; 70480; 72125; 90471; 90715; 99283

== ENCOUNTER → 2018-08-01 | Outpatient (CLI) | payer MEDICARE ==
--- NOTE | 2018-08-01 16:00 | US ---
EXAMINATION TYPE: US venous doppler duplex LE RT DATE OF EXAM: 08/01/2018 3:42 PM COMPARISON: US 2019 CLINICAL HISTORY: I80.9 Phlebitis and thrombophlebitis. Intermittent right leg pain and swelling x 2 months, patient on blood thinners SIDE PERFORMED: Right TECHNIQUE: The lower extremity deep venous system is examined utilizing real time linear array sonog mildred with graded compression, doppler sonography and color-flow sonography. VESSELS IMAGED: External Iliac Vein (EIV) Common Femoral Vein Deep Femoral Vein Greater Saphenous Vein * Femoral Vein Popliteal Vein Small Saphenous Vein * Proximal Calf Veins (* superficial vessels) Right Leg: Appears negative for DVT Grayscale, color doppler, spectral doppler imaging performed of the deep veins of the right lower ex tremity. There is normal flow, compressibility, vascular waveforms. IMPRESSION: No ultrasound evidence for acute DVT in the right lower extremity.
[2018-08-01 16:54] LABS: Basophils # (A) 0.1 k/uL (0-0.2); Basophils % (A) 1 %; Eosinophils # (A) 0.2 k/uL (0-0.7); Eosinophils % (A) 3 %; HGB 12.8 gm/dL (13.0-17.5); Hypochromasia Slight; Lymphocytes # (A) 1.6 k/uL (1.0-4.8); Lymphocytes % (A) 26 %; MCHC 31.1 g/dL (31.0-37.0); MCV 83.7 fL (80.0-100.0); Mean Platelet Volume 7.3; Monocytes # (A) 0.4 k/uL (0-1.0); Monocytes % (A) 6 %; Neutrophils # (A) 3.8 k/uL (1.3-7.7); Neutrophils % (A) 61 %; Platelet Count 269 k/uL (150-450); RDW 13.4 % (11.5-15.5); WBC 6.2 k/uL (3.8-10.6)
[2018-08-01 19:08] LABS: Erythrocyte Sedimentation Rate 15 mm/hr (0-15)
== END | disposition home or self-care (01) ==
LOC: RADUSWWP 15:17
PROVIDERS: ATTEND Physician Assistant
DX: M25.551 Pain in right hip (principal); M16.11 Unilateral primary osteoarthritis, right hip; I10 Essential (primary) hypertension; E13.9 Other specified diabetes mellitus without complications; Z47.1 Aftercare following joint replacement surgery; Z87.891 Personal history of nicotine dependence; Z96.641 Presence of right artificial hip joint
CPT/HCPCS: 85025; 85652; 86140